=== PATIENT | male | born 1945 | race Caucasian/White ===

== ENCOUNTER 2016-11-19 08:26 | Observation (INO) | payer MEDICARE, OTHER ==
[~2016-11-19 08:26] MED LIST: ABX; AMANTADINE HCL PO; AMANTADINE100 M1 PO; ANALGESIC BALM30 G1 EXT; APAP500 MG PO; ASPIRIN81 M1 PO; AUGMENTIN875 MG PO; BISACODYL10 MG RC; CIPRO500 M2 PO; COLACE100 MG GT; COLACE100 MG PO; COUMADIN5 M1 PO; CYANOCOBAL1000 MCG/M IM; DOXYCYCLINE HY100 M3 PO; DULCOLAX10 MG/SUPP RC; GARAMYCIN5 ML OP; ISOPTO TEARS15 ML OP; KEPPRA1000 M1 PO; KEPPRA500 M1 PO; LEVAQUIN250 M3 PO; LEXAPRO10 M1 PO; LEXAPRO20 M2 PO; LOVENOX; MIRALAX17 G1 GT; MIRALAX17 G1 PO; NEURONTIN300 MG PO; NEURONTIN600 M1 PO; NEURONTIN600 MG PO; NO HOME MEDS; NORCO 5/3251 TA1 PO; NORCO 5/3251 TAB PO; NORVASC2.5 M1 PO; NORVASC2.5 MG PO; NORVASC5 M2 PO; OXYCODONE/APAP PO; PREDNISONE10 M1 PO; PRILOSEC40 M1 PO; PROVENTIL HFA6.7 G1 INH; RELPAX40 MG PO; RESTORIL15 MG PO; RESTORIL30 M1 PO; ROXICODONE5 MG PO; SENOKOT-S (SENN1 TA1 PO; SEROQUEL25 M1 PO; SKELAXIN800 M1 PO; SYMBICORT 160-4.6 GM IH; SYMMETREL100 MG PO; TYLENOL EXTRA500 M1 PO; ULTRAM50 MG PO; VITAMIN B-121000 MC2 PO; XANAX0.5 MG GT; XANAX0.5 MG PO; XYLOCAINE JELLY APL; ZEGERID 40 MG P1 PKT PO; [UNRECOGNIZED DRUG - OTHER] TOP
[2016-11-19 08:54] LABS: BASO % 0.4 % (0-2); EOS % 0.7 % (0-7); EOSINOPHIL ABSOLUTE COUNT 0.1 tho/cmm (0.0-0.7); HCT-HEMATOCRIT 49.4 % (36.0-53.5); HGB-HEMOGLOBIN 16.5 gm/dl (13.5-17.0); LYMPH % 12.2 % (20-45); MCH (MEAN CORPUSCULAR HGB) 30.4 pg (28.0-32.0); MCHC MEAN CORPUSCULAR HGB CONC 33.4 % (32.0-36.0); MCV (MEAN CELL VOLUME) 91.1 fl (82.0-96.0); MEAN PLATELET VOLUME 10.3 cmc (9.4-12.4); MONO % 8.7 % (0-12); MONOCYTE ABSOLUTE COUNT 0.7 tho/cmm (0.0-1.2); NEUTROPHIL ABSOLUTE COUNT 6.3 tho/cmm (1.6-8.0); NEUTROPHIL-AUTOMATED 6.3 tho/cmm (1.6-8.0); PLATELET COUNT 196 tho/cmm (150-450); RED BLOOD COUNT 5.42 mil/cmm (4.40-5.70); RED CELL DISTRIBUTION WIDTH 13.6 % (12.4-16.4)
[2016-11-19 09:08] LABS: ANION GAP 11 mmol/L (0-20); BLOOD UREA NITROGEN 17 mg/dl (6-24); CALCIUM 8.6 mg/dl (8.5-10.5); CARBON DIOXIDE-VENOUS 28 mmol/L (22-32); CHLORIDE 102 mmol/l (96-110); CREATININE 1.03 mg/dl (0.60-1.30); GLUCOSE 118 mg/dL (70-110); POTASSIUM 4.3 mmol/L (3.7-5.1); SODIUM 137 mmol/L (135-145); eGFR VALUE FOR BLACK 83 mL/Min
[2016-11-19] MEDS ORDERED: NORVASC2.5 M1 PO (09:30)
[2016-11-19] MEDS ORDERED: VITAMIN D5000 UNI1 PO (09:31)
[2016-11-19] MEDS ORDERED: ZOCOR20 M1 PO (09:42)
[2016-11-19 12:23] LABS: ALBUMIN 3.8 g/dl (3.5-5.0); ALKALINE PHOSPHATASE 83 U/L (33-138); ALT/SGPT 29 U/L (12-78); BILIRUBIN,DIRECT <0.1 mg/dl (0.0-0.3); BILIRUBIN,INDIRECT 0.5 mg/dL (0.0-1.0); BILIRUBIN,TOTAL 0.6 mg/dl (0.0-1.5)
[2016-11-19 12:25] LABS: AST/SGOT 27 U/L (10-40)
[2016-11-20] MEDS ORDERED: VALIUM5 M1 PO (14:40)
== END 2016-11-20 16:34 ==
LOC: EDMED 08:26 → EMR2 14:53 → CAR1 14:55
PROVIDERS: Emergency Medicine; ADMIT Family Medicine
DX: H81.10 Benign paroxysmal vertigo, unspecified ear (principal); I10 Essential (primary) hypertension; I51.7 Cardiomegaly; I65.23 Occlusion and stenosis of bilateral carotid arteries; Z86.718 Personal history of other venous thrombosis and embolism; Z85.038 Personal history of other malignant neoplasm of large intestine; Z90.49 Acquired absence of other specified parts of digestive tract; Z87.891 Personal history of nicotine dependence; Z98.42 Cataract extraction status, left eye; Z79.899 Other long term (current) drug therapy; Z98.890 Other specified postprocedural states
CPT/HCPCS: G0378; G8978-GP-CJ; G8979-GP-CI; G8980-GP-CJ; G8987-GO-CI; G8988-GO-CI; G8989-GO-CI; J2405; J7030

== ENCOUNTER 2017-01-11 08:35 | Inpatient (IN) | payer MEDICARE, OTHER ==
[~2017-01-11 08:35] MED LIST changes: +VALIUM5 M1 PO; +VITAMIN D5000 UNI1 PO; +ZOCOR20 M1 PO
[2017-01-11 09:01] LABS: BASO % 0.3 % (0-2); EOS % 0.7 % (0-7); EOSINOPHIL ABSOLUTE COUNT 0.1 tho/cmm (0.0-0.7); HCT-HEMATOCRIT 49.4 % (36.0-53.5); HGB-HEMOGLOBIN 17.2 gm/dl (13.5-17.0); IMMATURE GRANULOCYTES ABSOLUTE 0.06 tho/cmm (0-0.03); IMMATURE GRANULOCYTES PERCENT 0.7 % (0-0.3); LYMPH % 13.2 % (20-45); LYMPH ABSOLUTE COUNT 1.1 tho/cmm (0.8-4.5); MCHC MEAN CORPUSCULAR HGB CONC 34.8 % (32.0-36.0); MEAN PLATELET VOLUME 10.1 cmc (9.4-12.4); MONO % 8.4 % (0-12); MONOCYTE ABSOLUTE COUNT 0.7 tho/cmm (0.0-1.2); NEUTROPHIL ABSOLUTE COUNT 6.6 tho/cmm (1.6-8.0); NEUTROPHIL-AUTOMATED 6.6 tho/cmm (1.6-8.0); NEUTROPHILS % 76.7 % (40-80); PLATELET COUNT 204 tho/cmm (150-450); RED BLOOD COUNT 5.37 mil/cmm (4.40-5.70); RED CELL DISTRIBUTION WIDTH 13.6 % (12.4-16.4); WHITE BLOOD COUNT 8.6 tho/cmm (4.0-10.0)
[2017-01-11 09:13] LABS: ANION GAP 13 mmol/L (0-20); BLOOD UREA NITROGEN 16 mg/dl (6-24); CALCIUM 8.7 mg/dl (8.5-10.5); CARBON DIOXIDE-VENOUS 29 mmol/L (22-32); CHLORIDE 101 mmol/l (96-110); CREATININE 1.21 mg/dl (0.60-1.30); GLUCOSE 120 mg/dL (70-110); POTASSIUM 4.8 mmol/L (3.7-5.1); SODIUM 138 mmol/L (135-145); eGFR VALUE FOR BLACK 68 mL/Min
[2017-01-11 09:20] LABS: INR 1.1 INR (0.9-1.1); PROTHROMBIN TIME 12.3 SECONDS (9.0-13.6)
[2017-01-11 09:26] LABS: ESR-ERYTHROCYTE SED RATE 1 mm/hr (0-20)
[2017-01-12 05:28] LABS: BASO % 0.2 % (0-2); EOS % 0.5 % (0-7); HCT-HEMATOCRIT 49.3 % (36.0-53.5); IMMATURE GRANULOCYTES ABSOLUTE 0.04 tho/cmm (0-0.03); IMMATURE GRANULOCYTES PERCENT 0.5 % (0-0.3); LYMPH % 11.9 % (20-45); MCH (MEAN CORPUSCULAR HGB) 31.5 pg (28.0-32.0); MCHC MEAN CORPUSCULAR HGB CONC 34.5 % (32.0-36.0); MCV (MEAN CELL VOLUME) 91.5 fl (82.0-96.0); MEAN PLATELET VOLUME 10.3 cmc (9.4-12.4); MONO % 8.4 % (0-12); MONOCYTE ABSOLUTE COUNT 0.7 tho/cmm (0.0-1.2); NEUTROPHIL ABSOLUTE COUNT 6.7 tho/cmm (1.6-8.0); NEUTROPHIL-AUTOMATED 6.7 tho/cmm (1.6-8.0); NEUTROPHILS % 78.5 % (40-80); PLATELET COUNT 209 tho/cmm (150-450); RED BLOOD COUNT 5.39 mil/cmm (4.40-5.70); RED CELL DISTRIBUTION WIDTH 13.7 % (12.4-16.4); WHITE BLOOD COUNT 8.6 tho/cmm (4.0-10.0)
[2017-01-12 05:42] LABS: ALB/GLOB RATIO 0.9 (0.8-2.0); ALBUMIN 3.7 g/dl (3.5-5.0); ALKALINE PHOSPHATASE 91 U/L (33-138); ALT/SGPT 24 U/L (12-78); BILIRUBIN,TOTAL 0.9 mg/dl (0.0-1.5); BLOOD UREA NITROGEN 14 mg/dl (6-24); CALCIUM 8.6 mg/dl (8.5-10.5); CARBON DIOXIDE-VENOUS 28 mmol/L (22-32); CHLORIDE 102 mmol/l (96-110); CHOLESTEROL 111 mg/dl (120-200); CREATININE 1.02 mg/dl (0.60-1.30); GLUCOSE 123 mg/dL (70-110); HDL CHOLESTEROL 38 mg/dl (40-60); LDL CHOLESTEROL 51 mg/dl (0-99); SODIUM 137 mmol/L (135-145); TRIGLYCERIDES 111 mg/dl (<149); VLDL 22 mg/dl (0-30); eGFR VALUE FOR BLACK 84 mL/Min
[2017-01-12 05:53] LABS: ANION GAP 12 mmol/L (0-20); AST/SGOT 28 U/L (10-40); POTASSIUM 4.8 mmol/L (3.7-5.1)
== END 2017-01-14 15:40 | DRG 65 ==
LOC: EDMED 08:35 → EMR2 13:52 → CCU 13:59 → 5EB 01-12 11:50
PROVIDERS: Emergency Medicine; Internal Medicine; ADMIT Family Medicine
DX: I62.9 Nontraumatic intracranial hemorrhage, unspecified (principal); E87.1 Hypo-osmolality and hyponatremia; I69.319 Unspecified symptoms and signs involving cognitive functions following cerebral infarction; R00.1 Bradycardia, unspecified; I10 Essential (primary) hypertension; Z86.718 Personal history of other venous thrombosis and embolism; M19.90 Unspecified osteoarthritis, unspecified site; K22.2 Esophageal obstruction; Z88.8 Allergy status to other drugs, medicaments and biological substances; D32.9 Benign neoplasm of meninges, unspecified; R11.0 Nausea; R51 Headache
CPT/HCPCS: C9113; G9159-GN-CI; G9160-GN-CI; G9161-GN-CI; J1953; J2405